=== PATIENT | male | born 1955 | race Asian ===

== ENCOUNTER 2019-09-28 10:01 | Emergency (ER) | payer OTHER ==
[~2019-09-28] VITALS: Ht 180.3 cm; Wt 67.4 kg
[2019-09-28 10:07] VITALS: Ht 180.3 cm; Wt 67.4 kg
[2019-09-28 12:25] VITALS: BP 120/74
== END 2019-09-28 12:25 | disposition home or self-care (01) ==
LOC: ED 10:01
DX: K59.00 Constipation, unspecified (principal)
CPT/HCPCS: Q0092